=== PATIENT | female | born 1985 | race American Indian/Alaskan Native ===

== ENCOUNTER 2017-08-13 16:55 | Emergency (ER) | payer MEDICAID ==
[2017-08-13] MEDS ORDERED: CATAPRES ONE (17:12)
[2017-08-13] MEDS ORDERED: CATAPRES PO ONE (17:16)
[2017-08-14] MEDS ORDERED: TYLENOL PO ONE (00:52)
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
[2017-08-14 01:21] VITALS: BP 116/77
== END 2017-08-14 01:27 | disposition home or self-care (01) ==
LOC: ED 16:55
DX: O26.892 Other specified pregnancy related conditions, second trimester (principal); S10.91XA Abrasion of unspecified part of neck, initial encounter; S00.511A Abrasion of lip, initial encounter; I10 Essential (primary) hypertension; Z87.891 Personal history of nicotine dependence; Z3A.14 14 weeks gestation of pregnancy; Y04.8XXA Assault by other bodily force, initial encounter; Y93.89 Activity, other specified; Y92.89 Other specified places as the place of occurrence of the external cause; Y99.8 Other external cause status
CPT/HCPCS: 99282

== ENCOUNTER 2019-02-22 05:22 | Inpatient (IN) | payer MEDICAID ==
[2019-02-22] MEDS ORDERED: HYDROcodone/ACETAMINOPHEN 5-325 MG TAB PO ONE (05:38)
[2019-02-22 05:59] LABS: Basophils # (Auto) 0.1 K/mm3 (0.0-0.1); Basophils % (Auto) 0.6 % (0.0-1.8); Eosinophils # (Auto) 0.2 K/mm3 (0.0-0.4); Eosinophils % (Auto) 1.5 % (0.0-4.3); Hemoglobin 11.5 gm/dl (10.1-14.3); Lymphocytes # (Auto) 2.6 K/mm3 (1.2-5.4); Lymphocytes % (Auto) 25.9 % (13.4-35.0); Monocytes # (Auto) 0.5 K/mm3 (0.0-0.8); Monocytes % (Auto) 4.9 % (0.0-7.3)
[2019-02-22 06:10] LABS: Hematocrit 36.9 % (30.3-42.9); Mean Corpuscular HGB Conc 31 % (30-34); Mean Corpuscular Volume 70 fl (79-97); Platelet Count 345 K/mm3 (140-440); Red Blood Count 5.24 M/mm3 (3.65-5.03); Red Cell Distribution Width 18.4 % (13.2-15.2)
[2019-02-22 06:14] LABS: Alanine Aminotransferase 17 units/L (7-56); Albumin 4.3 g/dL (3.9-5); BUN/Creatinine Ratio 16; Blood Urea Nitrogen 13 mg/dL (7-17); Calcium 8.9 mg/dL (8.4-10.2); Hemolysis Index 0
[2019-02-22] MEDS ORDERED: KETOROLAC 30 MG/1 ML INJ IV ONE (06:24)
[2019-02-22] MEDS ORDERED: diphenhydrAMINE 50 MG/ML VIAL IV ONE (06:24)
[2019-02-22] MEDS ORDERED: METOCLOPRAMIDE 10 MG/2 ML INJ IV ONE (06:24)
--- NOTE | 2019-02-22 06:26 | Emergency Department Report ---
ED Headache HPI - General Chief Complaint: Headache Stated Complaint: HEADACHE Time Seen by Provider: 02/22/19 06:01 Source: patient Exam Limitations: no limitations - History of Present Illness Initial Comments: 33-year-old female with a past medical history obesity and hypertension presents to the Hospital complains of headache 1 week. Headache is posterior and radiates to top of head. Pain is intermittent, it is somewhat improved with [id number] migraine and tension headache medication. This morning she woke up with worsening headache and nausea. Patient denies fever, head injury, focal weakness, or focal numbness. No visual changes reported. Patient reports she has history of chronic headaches but has never been to the hospital for evaluation or seen a neurologist. She's been noncompliant with her blood pressure medication for 6 months and presents with elevated blood pressure. She does not monitor her blood pressure medication at home. PMD: None Allergies/Adverse Reactions: Allergies No Known Allergies Allergy (Unverified 03/19/15 13:59) Home Medications: Ambulatory Orders Labetalol HCl 1 cap PO BID 03/21/15 Vit,Calc76/Iron/Folic [Prenatabs Rx Tablet] 1 caplet PO DAILY 03/21/15 Butalb/Acetamin/Caff 50-325-40 [Fioricet 50-325-40] 1 tab PO Q8HR PRN #20 tablet 02/22/19 Metoclopramide [Reglan] 10 mg PO TID PRN #20 tab 02/22/19 amLODIPine [Norvasc] 10 mg PO DAILY #30 tab 02/22/19 ED Review of Systems ROS: Stated complaint: HEADACHE Other details as noted in HPI Comment: All other systems reviewed and negative ED Past Medical Hx - Past Medical History Previous Medical History?: Yes Hx Hypertension: Yes (chronic, not on meds) Hx Congestive Heart Failure: No Hx Diabetes: No Hx Asthma: No Hx COPD: No - Surgical History Past Surgical History?: Yes Additional Surgical History: tonsillectomy - Social History Smoking Status: Current Some Day Smoker Substance Use Type: None - Medications Home Medications: Home Medications Medication Instructions Recorded Confirmed Last Taken Type Labetalol HCl 1 cap PO BID 03/21/15 03/21/15 03/20/15 10:00 History Vit,Calc76/Iron/Folic 1 caplet PO DAILY 03/21/15 03/21/15 03/20/15 10: 00 History [Prenatabs Rx Tablet] Butalb/Acetamin/Caff 50-325-40 1 tab PO Q8HR PRN #20 tablet 02/22/19 Unknown Rx [Fioricet 50-325-40] Metoclopramide [Reglan] 10 mg PO TID PRN #20 tab 02/22/19 Unknown Rx amLODIPine [Norvasc] 10 mg PO DAILY #30 tab 02/22/19 Unknown Rx ED Physical Exam - General Limitations: No Limitations - Other Other exam information: Gen.: No acute distress Head: Atraumatic Eyes: Normal appearance, pupils equal reactive to light, extraocular movements intact ENT: Moist mucous membranes Neck: Normal appearance, no posterior midline tenderness, no meningismus Chest: Clear to auscultation bilaterally Cardiovascular: Regular rate and rhythm Abdomen: Normal appearance, soft, nontender, no rebound or guarding, normal bowel sounds Back: Normal appearance, nontender Extremity: Full range of motion, normal appearance Neuro: Alert and oriented 3, clear speech, no focal motor or sensory deficit Psychiatric: Appropriate Skin: No rash ED Course Vital Signs 02/22/19 02/22/19 02/22/19 05:27 05:30 05:40 Temperature 98.1 F Pulse Rate 71 Respiratory 20 16 Rate Blood Pressure 187/125 187/125 Blood Pressure [Left] O2 Sat by Pulse 100 100 100 Oximetry 02/22/19 02/22/19 02/22/19 05:47 05:53 06:00 Temperature Pulse Rate 74 65 Respiratory 20 20 Rate Blood Pressure 208/127 181/116 Blood Pressure 181/116 [Left] O2 Sat by Pulse 100 Oximetry 02/22/19 02/22/19 02/22/19 06:30 06:45 06:46 Temperature Pulse Rate 67 53 L 45 L Respiratory 15 14 Rate Blood Pressure 188/123 175/108 184/125 Blood Pressure [Left] O2 Sat by Pulse 100 100 Oximetry 02/22/19 02/22/19 02/22/19 07:00 07:16 07:30 Temperature Pulse Rate 56 L 55 L 58 L Respiratory 7 L 11 L 12 Rate Blood Pressure 170/103 166/107 176/107 Blood Pressure [Left] O2 Sat by Pulse 100 100 100 Oximetry 02/22/19 08:10 Temperature Pulse Rate 51 L Respiratory 19 Rate Blood Pressure Blood Pressure 140/85 [Left] O2 Sat by Pulse 100 Oximetry - Reevaluation(s) Reevaluation #1: 02/22/19 08:58 At time of my evaluation patient had received labetalol 10 mg IV in the Big Pool 5 mg without any improvement in her headache or blood pressure. Patient received migraine cocktail of Reglan, Benadryl, and Toradol. She also receive hydralazine 5 mg IV and slept for over an hour after receiving medication. Upon waking up at this time patient states her headache is gone and her blood pressure is also improved. ED Medical Decision Making - Lab Data Result diagrams: 02/22/19 05:48 02/22/19 05:48 Lab Results 02/22/19 02/22/19 02/22/19 Range/Units 05:48 05:48 05:48 WBC 10.2 (4.5-11.0) K/mm3 RBC 5.24 H (3.65-5.03) M/mm3 Hgb 11.5 (10.1-14.3) gm/dl Hct 36.9 (30.3-42.9) % MCV 70 L (79-97) fl MCH 22 L (28-32) pg MCHC 31 (30-34) % RDW 18.4 H (13.2-15.2) % Plt Count 345 (140-440) K/mm3 Lymph % (Auto) 25.9 (13.4-35.0) % Calhoun % (Auto) 4.9 (0.0-7.3) % Eos % (Auto) 1.5 (0.0-4.3) % Baso % (Auto) 0.6 (0.0-1.8) % Lymph # 2.6 (1.2-5.4) K/mm3 Calhoun # 0.5 (0.0-0.8) K/mm3 Eos # 0.2 (0.0-0.4) K/mm3 Baso # 0.1 (0.0-0.1) K/mm3 Seg Neutrophils % 67.1 (40.0-70.0) % Seg Neutrophils # 6.8 (1.8-7.7) K/mm3 Sodium 142 (137-145) mmol/L Potassium 3.5 L (3.6-5.0) mmol/L Chloride 105.9 (98-107) mmol/L Carbon Dioxide 20 L (22-30) mmol/L Anion Gap 20 mmol/L BUN 13 (7-17) mg/dL Creatinine 0.8 (0.7-1.2) mg/dL Estimated GFR > 60 ml/min BUN/Creatinine Ratio 16 % Glucose 133 H (65-100) mg/dL Calcium 8.9 (8.4-10.2) mg/dL Total Bilirubin < 0.20 (0.1-1.2) mg/dL AST 22 (5-40) units/L ALT 17 (7-56) units/L Alkaline Phosphatase 68 (35-129) units/L Total Protein 7.9 (6.3-8.2) g/dL Albumin 4.3 (3.9-5) g/dL Albumin/Globulin Ratio 1.2 % HCG, Qual Negative (Negative) - Radiology Data Radiology results: report reviewed CT HEAD WITHOUT CONTRAST INDICATION / CLINICAL INFORMATION: Patient complains of severe headache, pain mostly to the back of head, photop hobia x 2 weeks. TECHNIQUE: All CT scans at this location are performed using CT dose reduction for ALARA by means of automated exposure control. COMPARISON: None available. FINDINGS: HEMORRHAGE: None. EXTRA-AXIAL SPACES: Normal in size and morphology for the patient's age. VENTRICULAR SYSTEM: Normal in size and morphology for the patient's age. CEREBRAL PARENCHYMA: No significant abnormality. No acute territorial infarct. MIDLINE SHIFT OR HERNIATION: None. CEREBELLUM / BRAINSTEM: No significant abnormality. ORBITS: Normal as visualized. SOFT TISSUES of HEAD: No significant abnormality. CALVARIUM: No significant abnormality. PARANASAL SINUSES / MASTOID AIR CELLS: Normal as visualized. ADDITIONAL FINDINGS: None. IMPRESSION: 1. No acute intracranial abnormality. - Medical Decision Making Patient's symptoms improving ED treatment. She was discharged on blood pressure medication and pain medicine for headache. She reports that she was last treated with amlodipine for her blood pressure. Follow-up with PMD and neurologist will be encouraged. - Differential Diagnosis intracranial hemorrhage, hypertensive headache, migraine, tension, mass Critical Care Time: No Critical care attestation.: If time is entered above; I have spent that time in minutes in the direct care of this critically ill patient, excluding procedure time. ED Disposition Clinical Impression: Uncontrolled hypertension, Headache Disposition: DC- TO HOME OR SELFCARE Is pt being admited?: No Does the pt Need Aspirin: No Condition: Stable Instructions: Hypertension (ED), Chronic Hypertension (ED) Additional Instructions: Take the medication as prescribed. Follow-up with your doctor or with the doctor/clinic provided. Return if symptoms worsen as indicated by your discharge instructions. Prescriptions: Butalb/Acetamin/Caff 50-325-40 [Fioricet 50-325-40] 1 tab PO Q8HR PRN #20 tablet PRN Reason: Headache amLODIPine [Norvasc] 10 mg PO DAILY #30 tab Metoclopramide [Reglan] 10 mg PO TID PRN #20 tab PRN Reason: Nausea And Vomiting Referrals: KATHE HOOKS MD [Staff Physician] - 3-5 Days (Neurologist) BARTOLO REAGAN MD [Staff Physician] - 3-5 Days (Primary care doctor) [facility] [Provider Group] - 3-5 Days (Primary care clinic) Time of Disposition: 09:10
--- NOTE | 2019-02-22 06:33 | Cat Scan Report ---
CT HEAD WITHOUT CONTRAST INDICATION / CLINICAL INFORMATION: Patient complains of severe headache, pain mostly to the back of head, photophobia x 2 weeks. TECHNIQUE: All CT scans at this location are performed using CT dose reduction for ALARA by means of automated e xposure control. COMPARISON: None available. FINDINGS: HEMORRHAGE: None. EXTRA-AXIAL SPACES: Normal in size and morphology for the patient's age. VENTRICULAR SYSTEM: Normal in size and morphology for the patient's age. CEREBRAL PARENCHYMA: No significant abnormality. No acute territorial infarct. MIDLINE SHIFT OR HERNIATION: None. CEREBELLUM / BRAINSTEM: No significant abnormality. ORBITS: Normal as visualized. SOFT TISSUES of HEAD: No significant abnormality. CALVARIUM: No significant abnormality. PARANASAL SINUSES / MASTOID AIR CELLS: Normal as visualized. ADDITIONAL FINDINGS: None. IMPRESSION: 1. No acute intracranial abnormality. Signer Name: Jitendra Duval MD Signed: 02/22/2019 6:29 AM Workstation Name: [id number]
[2019-02-22] MEDS ORDERED: hydrALAZINE 20 MG/1 ML INJ IV ONE ×2 (07:46→11:47)
[2019-02-22] MEDS ORDERED: HYDROmorphone 1 MG/1 ML INJ IV ONE (09:25)
[2019-02-22 10:34] LABS: Partial Thromboplastin Time 30.5 Sec. (24.2-36.6)
[2019-02-22] MEDS ORDERED: HYDROmorphone 1 MG/1 ML INJ ONE ×2 (12:02→14:21)
--- NOTE | 2019-02-22 12:10 | Cat Scan Report ---
CTA HEAD WITH CONTRAST HISTORY: Headache, hypertension COMPARISON: Noncontrast CT head performed the same day TECHNIQUE: Helical CTA of the head was performed.. 3-D/MIP reformats postprocessed. All CT scans at t his location are performed using CT dose reduction for ALARA by means of automated exposure control. CONTRAST: 100 ml of Omnipaque 350 FINDINGS: Intracranial vertebral arteries: No significant abnormality. The left vertebral artery is dominant. Basilar artery: No significant abnormality. Posterior cerebral arteries: No significant abnormality. Intracranial internal carotid arteries: No significant abnormality. Anterior cerebral arteries: No significant abnormality. Middle cerebral arteries: No significant abnormality. Dural venous sinuses:Not optimally opacified. No significant abnormality. Additional findings: Small bilateral posterior communicating arteries are identified. No evidence for aneurysm or atherosclerotic disease. IMPRESSION: Normal CTA head. Signer Name: Manpreet Mary Jr, MD Signed: 02/22/2019 12:06 PM Workstation Name: [id number]
--- NOTE | 2019-02-22 12:15 | Cat Scan Report ---
CTA NECK WITH CONTRAST HISTORY: Headache, hypertension COMPARISON: None. TECHNIQUE: Routine CTA of the neck is performed. 3-D/MIP reformats were postprocessed. Percentage st enosis is determined by direct quantitative measurements of diseased internal carotid artery diameter compared with normal distal internal carotid artery reference segments or by criteria similar to CANDY CET where applicable. All CT scans at this location are performed using CT dose reduction for ALARA b y means of automated exposure control. CONTRAST: 100 ml of Omnipaque 350 FINDINGS: Aortic arch: No significant abnormality. Cervical vertebral arteries: No significant abnormality. The left vertebral artery is dominant. Common carotid arteries: No significant abnormality. Cervical internal carotid arteries: No significant abnormality. Additional findings: No evidence for atherosclerotic disease, dissection or aneurysm. IMPRESSION: Normal CTA of the neck. Signer Name: Manpreet Mary Jr, MD Signed: 02/22/2019 12:11 PM Workstation Name: [id number]
[2019-02-22] MEDS ORDERED: LIDOCAINE (1%) 10 MG/1 ML VIAL 20 ML MDV ONE (12:31)
[2019-02-22] MEDS ORDERED: cloNIDine 0.1 MG TAB PO ONE (14:01)
--- NOTE | 2019-02-22 14:40 | Fluoroscopy Report ---
LUMBAR PUNCTURE INDICATION : Headache, evaluate for pseudotumor cerebri PROCEDURE: The risks (including but not limited to bleeding, infection, and spinal headache) and kayce efits were explained to the patient and informed consent was obtained. A time out procedure was perf ormed. The procedure site was prepped and draped in the usual sterile fashion and lidocaine was used for local anesthesia. Under fluoroscopic guidance, a 22-gauge spinal needle was advanced into the L2-3 interlaminar space. The opening pressure was 250 mm H2O which was calculated by adding the length of the needle (9 cm) to the height of the CSF column. 4 separate collection tubes were used to obtain approximately 2 cc of CSF each. Samples were sent to the lab per the ordering physician specifications for further evaluati on. The patient tolerated the procedure well with no complications. IMPRESSION: Successful lumbar puncture as outlined above. Opening pressure was elevated measuring 250 mm H20. Fluoroscopic time: 0.6 Number of fluoroscopic images: 1 Signer Name: Manpreet Mary Jr, MD Signed: 02/22/2019 2:36 PM Workstation Name: [id number]
[2019-02-22 15:22] LABS: Appearance,CSF Clear
[2019-02-22 15:25] LABS: Red Blood Cell,CSF 51 /mm3 (0-0); White Blood Cell,CSF 6 /mm3 (1-10)
[2019-02-22 15:25] LABS: Appearance,CSF Clear; Red Blood Cell,CSF 0 /mm3 (0-0); White Blood Cell,CSF 1 /mm3 (1-10)
[2019-02-22 15:35] LABS: Basophils CSF 0 %
[2019-02-22 15:39] LABS: Basophils CSF 0 %
--- NOTE | 2019-02-22 16:26 | History and Physical Report ---
History of Present Illness Chief complaint: My head hurts History of present illness: 33 YO Female with HTN, Medication Noncompliance, Nicotine Dependence, Obesity, Migraine KAPLAN presents to ED for evaluation. Pt states that she has experienced a severe headache over the past 1 week. Pt states that the headache is localized to the back of her head. Pt states that pain is 10/10, radiated to the top of her head. EMS notified and upon arrival the patient was found to be in distress. Pt transported to [facility]. Pt seen and evaluated in ED and found to have Hypertensive Emergency. Pt admitted to [facility]. Teleneurology consulted in ED. Pt does not require transfer for care. Neurology consulted in ED. Lumbar Puncture conducted in ED. Pt treated with antihypertensive therapy, and pain control with no significant improvement in symptoms. Pt denies fever, chills, CP, Palpitations, Trauma, seizure, productive cough, BRBPR, Unintentional weight loss, night sweats, bone pain, vision changes, vertigo, or recent ill contacts. Past History Past Medical History: hypertension, migraines, other (Obesity) Past Surgical History: tonsillectomy Social history: smoking Family history: hypertension Medications and Allergies Allergies Allergy/AdvReac Type Severity Reaction Status Date / Time No Known Allergies Allergy Unverified 03/19/15 13:59 Home Medications Medication Instructions Recorded Confirmed Last Taken Type amLODIPine [Norvasc] 10 mg PO DAILY 02/22/19 02/22/19 02/21/19 History Review of Systems Constitutional: no weight loss, no weight gain, no fever, no chills Ears, nose, mouth and throat: no ear pain, no nasal congestion, no nasal dischar ge Breasts: no change in shape, no swelling, no mass Cardiovascular: no chest pain, no orthopnea, no palpitations, no edema, no syncope, no lightheadedness Respiratory: no cough, no cough with sputum, no excessive sputum, no shortness of breath Gastrointestinal: no nausea, no vomiting, no diarrhea, no constipation, no change in bowel habits Genitourinary Female: no pelvic pain, no menorrhagia, no dysuria, no urinary frequency, no stress incontinence, no post void dribbling, no incomplete emptying, no mixed incontinence Rectal: no pain, no incontinence, no bleeding Musculoskeletal: no neck stiffness, no neck pain, no shooting arm pain, no arm numbness/tingling, no shooting leg pain, no leg numbness/tingling Integumentary: no rash, no pruritis, no redness, no sores, no wounds, no jaundice Neurological: headaches, migraines, no paralysis, no weakness, no parathesias, no numbness, no tingling, no seizures Psychiatric: no anxiety, no memory loss, no change in sleep habits, no sleep disturbances, no insomnia, no hypersomnia, no change in appetite, no change in libido Endocrine: no cold intolerance, no heat intolerance, no polyphagia, no excessive thirst, no polydipsia, no nocturia, no excessive sweating, no flushing Hematologic/Lymphatic: no easy bruising, no easy bleeding, no lymphadenopathy, no lymphedema Allergic/Immunologic: no urticaria, no allergic rhinitis, no wheezing, no persistent infections, no anaphylaxis, no angioedema Exam - Constitutional Vitals: Temp Pulse Resp BP Pulse Ox 98.1 F 62 12 182/114 100 02/22/19 05:27 02/22/19 12:30 02/22/19 12:30 02/22/19 12:30 02/22/19 12:30 General appearance: Present: mild distress - EENT Eyes: Present: PERRL ENT: hearing intact, clear oral mucosa - Neck Neck: Present: supple, normal ROM - Respiratory Respiratory effort: normal Respiratory: bilateral: CTA - Cardiovascular Heart Sounds: Present: S1 & S2. Absent: rub, click - Extremities Extremities: pulses symmetrical, No edema Peripheral Pulses: within normal limits - Abdominal General gastrointestinal: Present: soft, non-tender, non-distended, normal bowel sounds Female genitourinary: Present: normal - Integumentary Integumentary: Present: clear, warm, dry - Musculoskeletal Musculoskeletal: gait normal, strength equal bilaterally - Psychiatric Psychiatric: appropriate mood/affect, intact judgment & insight - Neurologic Neurologic: CNII-XII intact, moves all extremities Results - Labs CBC & Chem 7: 02/22/19 05:48 02/22/19 05:48 Labs: Abnormal lab results 02/22/19 02/22/19 Range/Units 05:48 05:48 RBC 5.24 H (3.65-5.03) M/mm3 MCV 70 L (79-97) fl MCH 22 L (28-32) pg RDW 18.4 H (13.2-15.2) % Potassium 3.5 L (3.6-5.0) mmol/L Carbon Dioxide 20 L (22-30) mmol/L Glucose 133 H (65-100) mg/dL Assessment and Plan - Patient Problems (1) Pseudotumor cerebri syndrome Current Visit: Yes Status: Acute Plan to address problem: Admit to IMCU, Monitor BP q shift, LP conducted in ED, Diamox TID, HCTZ, IV hydaralazine prn, monitor BP q shift, supportive care, Neurology consulted in ED, CT head, Further imaging as per Neurology consulted. (2) Hypertensive emergency Current Visit: Yes Status: Acute Plan to address problem: IV hydralazine prn, Diamox TID, HCTZ, supportive care, (3) Nicotine dependence Current Visit: Yes Status: Acute Qualifiers: Substance use status: in withdrawal Plan to address problem: Supportive care, smoking cessation counseling, +15min (4) DVT prophylaxis Current Visit: Yes Status: Acute Plan to address problem: SCD to BLE while in bed, supportive care,
[2019-02-22] MEDS ORDERED: ONDANSETRON 4 MG/2 ML INJ ONE (18:43)
[2019-02-22] MEDS ORDERED: ONDANSETRON 4 MG/2 ML INJ IV ONE (19:00)
[2019-02-22] MEDS ORDERED: hydrALAZINE 20 MG/1 ML INJ ONE (20:01)
[2019-02-23] MEDS: acetaZOLAMIDE 250 MG TAB PO SCH ×3 (00:21→22:55)
[2019-02-23] MEDS: oxyCODONE /ACETAMINOPHEN 5-325MG TAB PO PRN ×2 (00:21→11:16)
[2019-02-23 04:41] LABS: Alanine Aminotransferase 18 units/L (7-56); Albumin 4.3 g/dL (3.9-5); BUN/Creatinine Ratio 10; Blood Urea Nitrogen 8 mg/dL (7-17); Calcium 9.3 mg/dL (8.4-10.2); Hemolysis Index 1
--- NOTE | 2019-02-23 07:41 | Procedure Note ---
Date of procedure: 02/22/19 Pre-op diagnosis: headache, hypertension Post-op diagnosis: same Procedure: flouro guided lumbar puncture Findings: elevated opening pressure of 250 mmh20 Anesthesia: local Surgeon: MARVEL HALE Estimated blood loss: none Pathology: list (4 csf tubes) Specimen disposition: to lab Condition: stable Disposition: other (back to ER)
[2019-02-23] MEDS ORDERED: hydroCHLOROthiazide 12.5 MG CAP PO SCH (10:00)
[2019-02-23] MEDS: hydrALAZINE 20 MG/1 ML INJ IV PRN ×2 (13:30→22:08)
[2019-02-23] MEDS ORDERED: ONDANSETRON 4 MG/2 ML INJ IV PRN (15:30)
[2019-02-23] MEDS: BUTALB/ACETAMINOPHEN/CAFFEINE TAB PO PRN ×2 (16:29→22:07)
--- NOTE | 2019-02-23 16:44 | Progress Note ---
Assessment and Plan Assessment and plan: 33 YO Female with HTN, Medication Noncompliance, Nicotine Dependence, Obesity, Migraine KAPLAN presents to ED for evaluation. Pt states that she has experienced a severe headache over the past 1 week. Pt states that the headache is localized to the back of her head. Pt states that pain is 10/10, radiated to the top of her head. EMS notified and upon arrival the patient was found to be in distress. Pt transported to [facility]. Pt seen and evaluated in ED and found to have Hypertensive Emergency. Teleneurology consulted in ED. Pt does not require transfer for care. Neurology consulted in ED. Lumbar Puncture conducted in ED. Pt treated with antihypertensive therapy, and pain control with no significant improvement in symptoms. Pt denies fever, chills, CP, Palpitations, Trauma, seizure, productive cough, BRBPR, Unintentional weight loss, night sweats, bone pain, vision changes, vertigo, or recent ill contacts. CT Head and Neck: Normal CTA of the neck. CT head. No acute intracranial abnormality. Hypertensive Emergency Headache R/O Pseudotumor Cerebri Syndrome Nicotine Dependance Obese Mellitus Plan Continue supportive care Patient reports she has been out of her BP meds for 6 months She normally has headaches but improving now with better Bp control Per Pt LP actually mad Headache worse Diamox given in ED will discontinue Target for better BP continue Hydralazin PRN Weight loss Counselling History Interval history: Patient seen and examined, reports intermittent headache for sometime but this was the worse, no blurry vision at this time. Hospitalist Physical - Constitutional Vitals: Temp Pulse Resp BP Pulse Ox 97.8 F 63 20 155/80 100 02/23/19 12:00 02/23/19 15:29 02/23/19 16:29 02/23/19 15:29 02/23/19 14:30 General appearance: Present: no acute distress, obese - EENT Eyes: Present: PERRL, EOM intact ENT: hearing intact, clear oral mucosa, dentition normal - Neck Neck: Present: supple, normal ROM - Respiratory Respiratory effort: normal Respiratory: bilateral: CTA - Cardiovascular Rhythm: regular Heart Sounds: Present: S1 & S2. Absent: systolic murmur, diastolic murmur - Extremities Extremities: no ischemia, pulses intact, pulses symmetrical, No edema, normal temperature, normal color, Full ROM Peripheral Pulses: within normal limits - Abdominal General gastrointestinal: soft, non-tender, non-distended, normal bowel sounds - Integumentary Integumentary: Present: clear, warm, dry - Psychiatric Psychiatric: appropriate mood/affect, intact judgment & insight, memory intact, cooperative - Neurologic Neurologic: CNII-XII intact, moves all extremities - Allied Health Allied health notes reviewed: nursing, social work Results - Labs CBC & Chem 7: 02/22/19 05:48 02/23/19 03:45 Labs: Laboratory Last Values WBC 10.2 K/mm3 (4.5-11.0) 02/22/19 05:48 RBC 5.24 M/mm3 (3.65-5.03) H 02/22/19 05:48 Hgb 11.5 gm/dl (10.1-14.3) 02/22/19 05:48 Hct 36.9 % (30.3-42.9) 02/22/19 05:48 MCV 70 fl (79-97) L 02/22/19 05:48 MCH 22 pg (28-32) L 02/22/19 05:48 MCHC 31 % (30-34) 02/22/19 05:48 RDW 18.4 % (13.2-15.2) H 02/22/19 05:48 Plt Count 345 K/mm3 (140-440) 02/22/19 05:48 Lymph % (Auto) 25.9 % (13.4-35.0) 02/22/19 05:48 Yates % (Auto) 4.9 % (0.0-7.3) 02/22/19 05:48 Eos % (Auto) 1.5 % (0.0-4.3) 02/22/19 05:48 Baso % (Auto) 0.6 % (0.0-1.8) 02/22/19 05:48 Lymph # 2.6 K/mm3 (1.2-5.4) 02/22/19 05:48 Yates # 0.5 K/mm3 (0.0-0.8) 02/22/19 05:48 Eos # 0.2 K/mm3 (0.0-0.4) 02/22/19 05:48 Baso # 0.1 K/mm3 (0.0-0.1) 02/22/19 05:48 Seg Neutrophils % 67.1 % (40.0-70.0) 02/22/19 05:48 Seg Neutrophils # 6.8 K/mm3 (1.8-7.7) 02/22/19 05:48 PT 12.9 Sec. (12.2-14.9) 02/22/19 10:09 INR 1.00 (0.87-1.13) 02/22/19 10:09 APTT 30.5 Sec. (24.2-36.6) 02/22/19 10:09 Sodium 138 mmol/L (137-145) 02/23/19 03:45 Potassium 3.3 mmol/L (3.6-5.0) L 02/23/19 03:45 Chloride 101.8 mmol/L (98-107) 02/23/19 03:45 Carbon Dioxide 21 mmol/L (22-30) L 02/23/19 03:45 Anion Gap 19 mmol/L 02/23/19 03:45 BUN 8 mg/dL (7-17) 02/23/19 03:45 Creatinine 0.8 mg/dL (0.7-1.2) 02/23/19 03:45 Estimated GFR > 60 ml/min 02/23/19 03:45 BUN/Creatinine Ratio 10 % 02/23/19 03:45 Glucose 129 mg/dL (65-100) H 02/23/19 03:45 Calcium 9.3 mg/dL (8.4-10.2) 02/23/19 03:45 Total Bilirubin 0.30 mg/dL (0.1-1.2) 02/23/19 03:45 AST 17 units/L (5-40) 02/23/19 03:45 ALT 18 units/L (7-56) 02/23/19 03:45 Alkaline Phosphatase 68 units/L (35-129) 02/23/19 03:45 Total Protein 8.1 g/dL (6.3-8.2) 02/23/19 03:45 Albumin 4.3 g/dL (3.9-5) 02/23/19 03:45 Albumin/Globulin Ratio 1.1 % 02/23/19 03:45 HCG, Qual Negative (Negative) 02/22/19 05:48 CSF Appearance Clear 02/22/19 13:38 CSF Color Colorless 02/22/19 13:38 CSF WBC 1 /mm3 (1-10) 02/22/19 13:38 CSF RBC 0 /mm3 (0-0) 02/22/19 13:38 CSF Seg Neutrophils 0 % (0-6) 02/22/19 13:38 CSF Lymphocytes % 6 % (40-80) 02/22/19 13:38 CSF Reactive Lymphs 0 % 02/22/19 13:38 CSF Monocytes % 0 % (15-45) 02/22/19 13:38 CSF Eosinophils % 0 % 02/22/19 13:38 CSF Basophils 0 % 02/22/19 13:38 CSF Pathologist Review C 02/22/19 13:38 Active Medications - Current Medications Current Medications: Generic Name Dose Route Start Last Admin Trade Name Freq PRN Reason Stop Dose Admin Acetaminophen/Butalbital/Caffeine 1 tab 02/23/19 15:31 02/23/19 16:29 Fioricet PO 1 tab Q4H PRN Administration Headache Acetazolamide 250 mg 02/22/19 22:00 02/23/19 11:16 Diamox PO 250 mg BID MARCO Administration Amlodipine Besylate 10 mg 02/23/19 17:00 Norvasc PO DAILY MARCO Hydralazine HCl 10 mg 02/22/19 19:15 02/23/19 13:30 Apresoline IV 10 mg Q6HR PRN Administration Hypertension Hydrochlorothiazide 25 mg 02/23/19 16:40 Hctz PO QDAY MARCO Ondansetron HCl 4 mg 02/23/19 15:30 02/23/19 16:29 Zofran IV 4 mg Q4H PRN Administration Nausea And Vomiting Oxycodone/Acetaminophen 1 tab 02/22/19 16:26 02/23/19 11:16 Percocet 5/325 PO 1 tab Q6H PRN Administration Pain, Moderate (4-6) Potassium Chloride 40 meq 02/23/19 16:39 K-Dur PO 02/23/19 16:40 ONCE ONE Sodium Chloride 10 ml 02/22/19 22:00 02/23/19 11:17 Sodium Chloride Flush Syringe 10 Ml IV 10 ml BID MARCO Administration Sodium Chloride 10 ml 02/22/19 16:26 02/23/19 13:31 Sodium Chloride Flush Syringe 10 Ml IV 10 ml PRN PRN Administration LINE FLUSH
[2019-02-23] MEDS ORDERED: POTASSIUM CHLORIDE ER 20 MEQ TAB PO ONE (17:39)
[2019-02-23] MEDS: hydroCHLOROthiazide 25 MG TAB PO SCH (18:36)
[2019-02-23] MEDS: amLODIPine 10 MG TAB PO SCH (18:37)
--- NOTE | 2019-02-23 20:24 | Consultation ---
Past History Past Medical History: hypertension, migraines, other (Obesity) Past Surgical History: tonsillectomy Social history: smoking Family history: hypertension Medications and Allergies Allergies Allergy/AdvReac Type Severity Reaction Status Date / Time No Known Allergies Allergy Unverified 03/19/15 13:59 Home Medications Medication Instructions Recorded Confirmed Last Taken Type amLODIPine [Norvasc] 10 mg PO DAILY 02/22/19 02/22/19 02/21/19 History Active Meds: Active Medications Acetaminophen/Butalbital/Caffeine (Fioricet) 1 tab PO Q4H PRN PRN Reason: Headache Last Admin: 02/23/19 16:29 Dose: 1 tab Documented by: Acetazolamide (Diamox) 250 mg PO BID [facility] Last Admin: 02/23/19 11:16 Dose: 250 mg Documented by: Amlodipine Besylate (Norvasc) 10 mg PO DAILY [facility] Last Admin: 02/23/19 18:37 Dose: 10 mg Documented by: Hydralazine HCl (Apresoline) 10 mg IV Q6HR PRN PRN Reason: Hypertension Last Admin: 02/23/19 13:30 Dose: 10 mg Documented by: Hydrochlorothiazide (Hctz) 25 mg PO QDAY [facility] Last Admin: 02/23/19 18:36 Dose: 25 mg Documented by: Ondansetron HCl (Zofran) 4 mg IV Q4H PRN PRN Reason: Nausea And Vomiting Last Admin: 02/23/19 16:29 Dose: 4 mg Documented by: Oxycodone/Acetaminophen (Percocet 5/325) 1 tab PO Q6H PRN PRN Reason: Pain, Moderate (4-6) Last Admin: 02/23/19 11:16 Dose: 1 tab Documented by: Sodium Chloride (Sodium Chloride Flush Syringe 10 Ml) 10 ml IV BID [facility] Last Admin: 02/23/19 11:17 Dose: 10 ml Documented by: Sodium Chloride (Sodium Chloride Flush Syringe 10 Ml) 10 ml IV PRN PRN PRN Reason: LINE FLUSH Last Admin: 02/23/19 13:31 Dose: 10 ml Documented by: Physical Examination - Vital Signs Vital Signs: Vital Signs Temp Pulse Resp BP Pulse Ox 98.1 F 71 20 187/125 100 02/22/19 05:27 02/22/19 05:27 02/22/19 05:27 02/22/19 05:27 02/22/19 05:27 Results - Laboratory Findings CBC and BMP: 02/22/19 05:48 02/23/19 03:45 Abnormal Lab Findings: Abnormal Labs 02/22/19 02/22/19 02/23/19 05:48 05:48 03:45 RBC 5.24 H MCV 70 L MCH 22 L RDW 18.4 H Potassium 3.5 L 3.3 L Carbon Dioxide 20 L 21 L Glucose 133 H 129 H Assessment and Plan 33 YR OLD FEMALE WITH HISTORY OF HYPERTENSION,MIGRAINE AND OBESITY WHO STOPPED TAKING HER BLOOD PRESSURE MEDICATION ABOUT 6 MONTHS AGO WHO DEVELOPED HEADACHE ABOUT ONE WEEK AGO. HEADACHE GRADUALLY INCREASED TO A POINT THAT SHE WAS NOT ABLE TO LIVE WITH IT ANY MORE AND CAME TO THE EMERGENCY WHEN HER BP WAS FOUND TO BE 222/111 MM OF HG. PATIENT ALSO COMPLAINED OF BLURRED VISION AND PRESSURE ON THE BACK OF THE HEAD, WHEN SHE CAME TO ER THE POSSIBILITY OF PSEUDO TUMOR C EREBRI WAS CONSIDERED, LP WAS DONE AND 8CC OF FLUID WAS DRAWN, OPENING PRESSURE WAS 250 mm. PATIENT WAS STARTED ON ANTIHYPERTENSIVE MEDICATION AND ALSO DIAMOX WAS GIVEN. PATIENT WAS ADMITTED ON 02/22/2019 AND SHE WAS TRANSFERED TO REGULAR MEDICAL FLOOR. SHEAT PRESENT SHE REPORTS NO HEADCHE, NO PHOTOPHOBIA AND NO VISUAL OBSCURATION. PHYSICAL EXAMINATION; PATIENT IS IN NO ACUTE DISTRESS, SHE IS ALERT AND APPROPRIATE,AND ANSWERS QUESTIONS APPROPRIATELY, HEART-NORMAL RATE AND RHYTHM CAROTIDS- BOTH PALPABLE CRANIAL NERVES-PUPILS REACT TO LIGHT, EXTRA OCULAR MOVEMENT IS INTACT,NO FACIAL ASYMMETRY OR FACIAL SENSORY LOSS, OTHER CRANIAL NERVES ARE WITH IN NORMAL LIMIT. MOTOR- NORMAL STRENGTH IN ALL FOUR EXTREMITIES COORDINATION- NORMAL REFLEXES- ALL WITH IN NORMAL LIMIT,WITH OUT ANY ASYMMETRY OF REFLEXES WITH BILATERAL DOWN GOING TOES SENSORY- SENSORY EXMINATION IS GROSSLY WITH IN NORMAL LIMIT IMPRESSION. 1, HYPERTENSIVE HEADACHE ASSOCIATED WITH CHRONIC TENSION TYPE HEADACHE, HAS SOME ELEMENT OF PSEUDO TUMOR CEREBRI, SYMPTOMS RESOLVED RECOMMEND. 1. FLEXERIL 2.5 MG PO BID PRN FOR OCCIPITAL MUSCLE STIFFNESS 2. PATIENT WAS ADVISED TO BE REGULAR WITH BLOOD PRESSURE MEDICATION AND TO AVOID EXCESS SALT AND CHEESE. 3. SHOULD HAVE FOLLOW UP WITH A NEUROLOGIST OUT PATIENT IN ADDITION TO PRIMARY CARE
[2019-02-24 09:24] VITALS: BP 130/92
[2019-02-24] MEDS: BUTALB/ACETAMINOPHEN/CAFFEINE TAB PO PRN (10:14)
[2019-02-24] MEDS: hydroCHLOROthiazide 25 MG TAB PO SCH (10:14)
[2019-02-24] MEDS: amLODIPine 10 MG TAB PO SCH (10:14)
--- NOTE | 2019-02-24 15:37 | Discharge Summary ---
Providers - Providers Date of Admission: 02/22/19 16:26 Date of discharge: 02/24/19 Attending physician: GLORIA DENNY 02/22/19 19:02 Consult to Physician [CONS] Routine Comment: Consulting Provider: JOSEF HOPE Physician Instructions: Reason For Exam: Pseudotumor cerebrii Primary care physician: [employer] Hospitalization Condition: Stable Hospital course: 33 YO Female with HTN, Medication Noncompliance, Nicotine Dependence, Obesity, Migraine KAPLAN presents to ED for evaluation. Pt states that she has experienced a severe headache over the past 1 week. Pt states that the headache is localized to the back of her head. Pt states that pain is 10/10, radiated to the top of her head. EMS notified and upon arrival the patient was found to be in distress. Pt transported to [facility]. Pt seen and evaluated in ED and found to have Hypertensive Emergency. Teleneurology consulted in ED. Pt does not require transfer for care. Neurology consulted in ED. Lumbar Puncture conducted in ED. Pt treated with antihypertensive therapy, and pain control with no significant improvement in symptoms. Pt denies fever, chills, CP, Palpitations, Trauma, seizure, productive cough, BRBPR, Unintentional weight loss, night sweats, bone pain, vision changes, vertigo, or recent ill contacts. CT Head and Neck: Normal CTA of the neck. CT head. No acute intracranial abnormality. Hypertensive Emergency Headache --Tension Nicotine Dependance Obese Mellitus Plan Continue supportive care Patient reports she has been out of her BP meds for 6 months She normally has headaches but improving now with better Bp control Per Pt LP actually mad Headache worse Diamox given in ED will discontinue BP under control Antihypertensives presribed--Losartan 100 mg po qd and Coreg 12,.5 bid Weight loss Counselling Disposition: DC- TO HOME OR SELFCARE Core Measure Documentation - Palliative Care Palliative Care/ Comfort Measures: Not Applicable - Core Measures Any of the following diagnoses?: none Exam - Constitutional Vitals: Temp Pulse Resp BP Pulse Ox 97.4 F L 72 18 130/92 99 02/24/19 08:46 02/24/19 10:00 02/24/19 08:46 02/24/19 08:46 02/24/19 08:46 General appearance: Present: no acute distress, well-nourished - EENT Eyes: Present: PERRL ENT: hearing intact, clear oral mucosa - Neck Neck: Present: supple, normal ROM - Respiratory Respiratory effort: normal Respiratory: bilateral: CTA - Cardiovascular Heart rate: 78 Rhythm: regular Heart Sounds: Present: S1 & S2. Absent: rub, click - Extremities Extremities: no ischemia, pulses intact, pulses symmetrical, No edema Peripheral Pulses: within normal limits - Abdominal General gastrointestinal: Present: soft, non-tender, non-distended, normal bowel sounds Female genitourinary: Present: normal - Rectal Rectal Exam: deferred - Integumentary Integumentary: Present: clear, warm, dry - Musculoskeletal Musculoskeletal: gait normal, strength equal bilaterally - Psychiatric Psychiatric: appropriate mood/affect, intact judgment & insight - Neurologic Neurologic: CNII-XII intact, moves all extremities - Allied Health Allied health notes reviewed: nursing, case management Plan Activity: no restrictions Diet: low fat, low salt Follow up with: BARTOLO REAGAN MD [Staff Physician] - 3-5 Days (Primary care doctor) NAPOLEON DRAKE MD [Staff Physician] - 7 Days
== END 2019-02-24 17:15 | disposition home or self-care (01) | DRG 305 ==
LOC: ED 05:22 → CC1 16:26 → IMCU 22:36 → 4A 02-23 15:04
PROVIDERS: ADMIT Internal Medicine; ATTEND Internal Medicine
PROC: 009U3ZX Drainage of Spinal Canal, Percutaneous Approach, Diagnostic (ICD-10-PCS; principal; 2019-02-22)
PROC: B01B1ZZ Fluoroscopy of Spinal Cord using Low Osmolar Contrast (ICD-10-PCS; 2019-02-22)
DX: I16.1 Hypertensive emergency (principal); G93.2 Benign intracranial hypertension; I10 Essential (primary) hypertension; F17.203 Nicotine dependence unspecified, with withdrawal; E66.9 Obesity, unspecified; G43.909 Migraine, unspecified, not intractable, without status migrainosus; G44.209 Tension-type headache, unspecified, not intractable; Z71.3 Dietary counseling and surveillance; Z68.39 Body mass index [BMI] 39.0-39.9, adult; Z82.49 Family history of ischemic heart disease and other diseases of the circulatory system; Z91.14 Patient's other noncompliance with medication regimen; Z79.899 Other long term (current) drug therapy
CPT/HCPCS: 36415; 62270; 70450; 70496; 70498; 77003; 80053; 84703; 85025; 85610; 85730; 89051; 99406; G0378; J0360; J1170; J1200; J1885; J2405; J2765; Q9967